=== PATIENT | female | born 1995 | race African-American/Black ===

== ENCOUNTER 2019-12-13 08:52 | Emergency (ER) | payer MEDICAID ==
[~2019-12-13] VITALS: Ht 165.1 cm; Wt 59.0 kg
[2019-12-13 09:15] VITALS: BP 107/63
[2019-12-13] MEDS ORDERED: Tetanus/Diptheria/Pertussis IM ONE (09:15)
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
[2019-12-13 10:34] VITALS: BP 107/63
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
== END 2019-12-13 09:35 | disposition home or self-care (01) ==
LOC: EMR 09:30
DX: S61.253A Open bite of left middle finger without damage to nail, initial encounter (principal); S60.465A Insect bite (nonvenomous) of left ring finger, initial encounter; W57.XXXA Bitten or stung by nonvenomous insect and other nonvenomous arthropods, initial encounter; Y92.9 Unspecified place or not applicable; Z23 Encounter for immunization
CPT/HCPCS: 90471; 90715; Z7502; 99282

== ENCOUNTER 2020-04-25 17:14 | Emergency (ER) | payer MEDICAID ==
[~2020-04-25] VITALS: Ht 165.1 cm; Wt 59.0 kg
[2020-04-25 17:27] VITALS: BP 123/81
--- NOTE | 2020-04-25 17:45 | Emergency Room Report ---
History of Present Illness General Chief Complaint: Skin Rash/Abscess Source: Patient Present Illness HPI 24 YO female presents to the ED c/o open wound on the top of the scalp x 1 day. Pt. was unaware of having an open wound as she had a type of hair extensions in called a Genie String x 1 month. Pt. reports feeling uncomfortable sensation that was getting worse. PT. states when at the hair salon today to have extensions removed. She was told to go to the hospital. Pt. denies fevers or chills. She denies itching. Pt. reports tenderness with palpation. She denies lesions or sores elsewhere on the body. She denies new medications. She denies or suspicion of . No other aggravating or relieving factors at this time. She rates her pain as localized 8 /10 in severity. Allergies: Coded Allergies: No Known Allergies (Unverified , 12/13/19) COVID-19 Screening Contact w/high risk pt: No Recent Travel to affected area: No Experienced COVID-19 symptoms?: No COVID-19 Testing performed [employer]: No Patient History Past Medical History: see triage record Past Surgical History: none Pertinent Family History: none Last Menstrual Period: last month Now: No Reviewed Nursing Documentation: PMH: Agreed; PSxH: Agreed Nursing Documentation-PMH Past Medical History: No Stated History Review of Systems All Other Systems: negative except mentioned in HPI Physical Exam Vital Signs Date Time Temp Pulse Resp B/P (MAP) Pulse Ox O2 Delivery O2 Flow Rate FiO2 04/25/20 17:18 99.0 99 19 123/81 (95) 99 Room Air Sp02 EP Interpretation: reviewed, normal General Appearance: no apparent distress, alert, GCS 15, non-toxic Head: normocephalic, other - 2.5cm ulcerated circular lesion with skin break down on the middle of the scalp. There is some surrounding erythema and purulent d/c oozing and punctate bleeding centrally. No blisters or vessicles. Hair is grossly contaminated with some type of adhesive. Eyes: bilateral eye normal inspection, bilateral eye PERRL ENT: hearing grossly normal, normal voice Neck: full range of motion Respiratory: lungs clear, normal breath sounds, speaking full sentences Cardiovascular #1: regular rate, rhythm Musculoskeletal: normal range of motion, gait/station normal, non-tender Neurologic: alert, motor strength/tone normal, oriented x3, sensory intact, responsive, speech normal Psychiatric: judgement/insight normal Skin: other - 2.5cm ulcerated circular lesion with skin break down on the middle of the scalp. There is some surrounding erythema and purulent d/c oozing and punctate bleeding centrally. No blisters or vessicles. Hair is grossly contaminated with some type of adhesive. Lymphatic: no adenopathy Medical Decision Making PA Attestation Dr. Lange is my supervising Physician whom patient management has been discussed with. Diagnostic Impression: Primary Impression: Cellulitis of scalp Additional Impression: Skin ulcer of scalp Qualified Codes: L98.491 - Non-pressure chronic ulcer of skin of other sites limited to breakdown of skin ER Course 24 YO female presents to the ED c/o open wound on the top of the scalp x 1 day. Pt. was unaware of having an open wound as she had a type of hair extensions in called a [email or web address] String x 1 month. Pt. reports feeling uncomfortable sensation that was getting worse. PT. states when at the hair salon today to have extensions removed. She was told to go to the hospital. Pt. denies fevers or chills. She denies itching. Pt. reports tenderness with palpation. She denies lesions or sores elsewhere on the body. She denies new medications. She denies or suspicion of . No other aggravating or relieving factors at this time. She rates her pain as localized 8 /10 in severity. Ddx considered but are not limited to cellulitis, Necrotizing fasciitis, allergic reaction, burn, dermatitis, fungal infection, pressure ulcer just to name a few. Vital signs: are WNL, pt. is afebrile H&PE are most consistent with ulceration of the scalp with secondary infection noted. questionably fungal. ORDERS: none required at this time, the diagnosis is clinical ED INTERVENTIONS: -Wound Irrigation Pt. given 500mg Keflex PO -- Instructed pt. that she will need close follow up with a Re Dye Hand and further evaluation. Extent of scaring is unknown at this time. PT. verbalizes her understanding and agreement with this treatment plan. Oral antifungals reserved for rx by PCP or security flex officer as needed and with liver function monitoring. DISCHARGE: At this time pt. is stable for d/c to home. Will provide printed patient care instructions, and any necessary prescriptions. Care plan and follow up instructions have been discussed with the patient prior to discharge. Last Vital Signs Date Time Temp Pulse Resp B/P (MAP) Pulse Ox O2 Delivery O2 Flow Rate FiO2 04/25/20 17:27 99.0 19 123/81 99 Room Air 04/25/20 17:18 99 Disposition: HOME, SELF-CARE Condition: Stable Scripts Chlorhexidine Gluconate* (HIBICLENS*) 118 Ml Liquid 5 ML TP DAILY, #118 ML Prov: Rosy Dalton 04/25/20 Clotrimazole* (LOTRIMIN*) 15 Gm Cream..g. 1 APPLIC TOPIC TWICE A DAY, #15 GM Prov: Rosy Dalton 04/25/20 Cephalexin* (KEFLEX*) 500 Mg Capsule 500 MG ORAL EVERY 12 HOURS for 7 Days, #14 CAP 0 Refills Prov: Rosy Dalton 04/25/20 Referrals: [facility] Patient Instructions: Cellulitis, [id number], Skin Ulcer Additional Instructions: Take medications as directed. Follow up with a Primary Care Provider in 3-5 days for DERMATOLOGY REFERRAL , even if your symptoms have resolved. --Please review list of primary care clinics, if you do not already have a primary care provider Return sooner to ED if new symptoms occur, or current symptoms become worse. - Please note that this Emergency Department Report was dictated using [employer] room inspector technology software, occasionally this can lead to erroneous entry secondary to interpretation by the dictation equipment. Rosy Dalton Apr 25, 2020 17:45
[2020-04-25] MEDS ORDERED: HIBICLENS118 ML TP (17:50)
[2020-04-25] MEDS ORDERED: CEPHALEXIN500 MG ORAL (17:50)
[2020-04-25] MEDS ORDERED: CLOTRIMAZOLE15 GM TOPIC (17:50)
[2020-04-25] MEDS ORDERED: Cephalexin 500mg cap ORAL ONE (18:00)
[2020-04-25 18:19] VITALS: BP 123/81
== END 2020-04-25 19:12 | disposition home or self-care (01) ==
LOC: EMR 17:35
DX: L03.811 Cellulitis of head [any part, except face] (principal); L98.491 Non-pressure chronic ulcer of skin of other sites limited to breakdown of skin
CPT/HCPCS: 99282